=== PATIENT | female | born 1980 | race Two or more races ===

== ENCOUNTER 2017-06-30 02:53 | Inpatient (IN) | payer OTHER ==
[~2017-06-30] VITALS: Ht 162.6 cm; Wt 52.2 kg
[2017-06-30] VITALS (13 sets, daily range): BP systolic 82–101; BP diastolic 40–55
--- NOTE | 2017-06-30 02:55 | NUR ---
to bed 1 bib paramedics c/o syncope. pt aaox4 no acute distress noted, resp even and unlabored. place pt on cardiac monitoring, continuous pox. pupils perrla, pt able to move all extremities well with bilateral equal shuttlecock assembler. sl 18g to lac bar captain. pending er md flores. will continue to monitor pt closely.
--- NOTE | 2017-06-30 03:01 | NUR ---
er md at bedside to eval pt with orders received. will carry out orders.
[2017-06-30] MEDS ORDERED: ONDANSETRON HCL/PF 4 MG/2 ML VIAL ONE ×2 (03:28→06:10)
[2017-06-30] MEDS ORDERED: ONDANSETRON HCL/PF 4 MG/2 ML VIAL IVP ONE (03:30)
[2017-06-30] MEDS ORDERED: IV NS 0.9% 1,000 ML BAG IV ONE ×2 (03:30→05:30)
--- NOTE | 2017-06-30 03:35 | NUR ---
pt medicated by rn per er md order.
--- NOTE | 2017-06-30 03:38 | NUR ---
blood drawn by conditioner tender.
[2017-06-30 03:59] LABS: BASOPHILS % (AUTO) 0.3 % (0.0-2.0); EOSINOPHILS % (AUTO) 0.3 % (0.0-6.0); HEMATOCRIT 26 % (33-45); LYMPHOCYTES % (AUTO) 9.1 % (20.0-44.0); MEAN CORPUSCULAR HEMOGLOBIN 30 PG (26.0-33.0); MEAN CORPUSCULAR HGB CONC 34 g/dl (31.0-36.0); MEAN CORPUSCULAR VOLUME 88 fL (82-100); MONOCYTES # (AUTO) 0.3 /CMM (0.1-1.30); MONOCYTES % (AUTO) 2.5 % (2.0-12.0); NEUTROPHILS % (AUTO) 87.8 % (43.0-81.0); PLATELET COUNT (AUTO) 258 /CMM (150-450); RDW COEFFICIENT OF VARIATION 13.6 (11.5-15.0); RED BLOOD CELL COUNT(AUTO) 2.99 MIL/uL (4.0-5.2); WHITE BLOOD COUNT (AUTO) 11.3 K/uL (4.3-11.0)
[2017-06-30 04:11] LABS: CALCIUM, SERUM 8.2 mg/dL (8.5-10.1); CREATININE 0.7 mg/dL (0.6-1.3); POTASSIUM 4.6 mmol/L (3.5-5.1)
--- NOTE | 2017-06-30 04:35 | NUR ---
PT TO RESTROOM PRIOR TO GOING TO OB ROOM FOR PELVIC EXAM. AWAITING MD FOR PELVIC EXAM. ALONGSIDE PT
--- NOTE | 2017-06-30 04:40 | NUR ---
PERFORMED ORTHOSTATIC VITAL EXAM. PT STATED TO FEELING "LIGHTHEADED, NAUSEOUS, AND SHORT OF BREATH." PT WAS LAYED BACK DOWN AND SIDE RAILS RAISED UP. CALL LIGHT PLACED WITHIN REACH. BEDISDE WITH PT. NOTIFIED. PT STATES TO FEELING BETTER WHILE LAYING DOWN. WILL CONTINUE TO MONITOR
--- NOTE | 2017-06-30 04:50 | NUR ---
MD BEDSIDE WITH ERIC MUNIZ FOR PELVIC EXAM.
--- NOTE | 2017-06-30 04:59 | NUR ---
MD DONE WITH PELVIC EXAM. OUT OF PT'S ROOM
--- NOTE | 2017-06-30 05:01 | NUR ---
CALLED DR. ALHAJI PEREZ ([phone]) AND LEFT MESSAGE FOR ON-CALL PHYSICIAN TO CALL DR. ESPINOZA.
--- NOTE | 2017-06-30 05:14 | NUR ---
HONORIO HALE SPOKE TO DR. PEREZ.
--- NOTE | 2017-06-30 05:20 | NUR ---
DR. GUO CALLED; TRANSFERRED TO DR. ESPINOZA
--- NOTE | 2017-06-30 05:21 | NUR ---
NURSING OFFICE CHAIR ASSEMBLER CALLED FOR TELE BED.
--- NOTE | 2017-06-30 05:24 | NUR ---
PANEL PAGED PER ER MD ORDER.
[2017-06-30] MEDS ORDERED: OXYTOCIN 10 UNIT/ML ML ONE (05:26)
[2017-06-30] MEDS ORDERED: METHYLERGONOVINE MALEATE 0.2 MG/ML AMPUL ONE (05:27)
[2017-06-30] MEDS ORDERED: METHYLERGONOVINE MALEATE 0.2 MG/ML AMPUL IM ONE ×2 (05:30→17:30)
[2017-06-30] MEDS ORDERED: OXYTOCIN 10 UNIT/ML ML IV ONE (05:30)
--- NOTE | 2017-06-30 05:31 | NUR ---
TELE 326-2
--- NOTE | 2017-06-30 05:45 | NUR ---
PER MD, PTOCIN 20 UNITS WAS MIXED WITH CURRENT INFUSING 1L NS BAG.
[2017-06-30] MEDS ORDERED: ONDANSETRON HCL/PF 4 MG/2 ML VIAL IV PRN (06:30)
--- NOTE | 2017-06-30 07:30 | NUR ---
MS HARDWOOD SAWYER NOTE PATIENT IS ALERT AND ORIENTED x4. NO PAIN AT THIS TIME. NO SOB OR DISTRESS NOTED. CALL LIGHT WITHIN REACH. SAFETY MEASURES IMPLEMENTED. ABLE TO COMMUNICATE NEEDS. CAME INTO ER DUE TO HEAVY BLEEDING, PATIENT STATED SHE WAS 14 WEEKS WHEN THEY DID ULTRASOUND IN ER, AND WAS TOLD SHE HAD MISCARRIED. PATIENT BLED x2 IN ER. HAS NOT YET SHOWED ANY BLEEDING AT THIS TIME. NO FAMILY HISTORY. RECEIVED FLU SHOT IND APRIL. CURRENTLY BED REST PATIENT STATED SHE FELL TWICE AT HOME AND HIT HER HEAD, REFUSES HEAD CT AT THIS TIME. WILL CONTINUE TO MONITOR THROUGHOUT SHIFT
[2017-06-30] MEDS: IV NS 0.9% 1,000 ML IV PRN ×3 (08:22→21:03)
[2017-06-30 08:28] LABS: FERRITIN 24 ng/mL (8-388)
[2017-06-30 09:31] LABS: IRON, SERUM 26 ug/dl (50-175); TOTAL IRON BINDING CAPACITY 222 ug/dl (250-450)
--- NOTE | 2017-06-30 11:30 | NUR ---
MS RN NOTE CALLED DR. KIRBY OFFICE FOR PATIENT CONSULT. AWAITING CALL BACK. CHARGE NURSE AWARE
--- NOTE | 2017-06-30 12:15 | NUR ---
MS RN NOTE CALLED DR. GUO OFFICE AGAIN. NOTIFIED PROBATION MANAGER ABOUT PATIENT'S CONCERNS AT THIS TIME. PROBATION MANAGER NOTIFIED DR. GUO, AWAITING CALL BACK AT THIS TIME.
[2017-06-30 12:47] LABS: HEMOGLOBIN 5.4 g/dL (11.5-14.8)
--- NOTE | 2017-06-30 12:55 | NUR ---
MS RN NOTE SPOKE WITH DR. PEREZ (PATIENT'S PRIMARY CORPORATE SECURITIES RESEARCH ANALYST) UPDATED HER ON BEHALF OF PATIENT'S WISH.
--- NOTE | 2017-06-30 12:57 | NUR ---
MS RN NOTE RECEIVED CALL FROM DR. GUO WILL COME TO SEE PATIENT FOR CONSULT SOON POSSIBLE
--- NOTE | 2017-06-30 14:00 | NUR ---
MS REYES NOTE DR. GUO AT BEDSIDE AT THIS TIME. ORDERS NOTED AND CARRIED OUT. WILL CONTINUE TO MONITOR THROUGHOUT SHIFT Addendum: 06/30/17 at 1846 by FREDDY MCLEAN RN REGINALD HELD OFF AT THIS TIME RECEIVING TRANSFUSION
--- NOTE | 2017-06-30 15:00 | NUR ---
MS RN NOTE PATIENT DEVELOPED 101.6 TEMPERATURE, ASYMPTOMATIC AT THIS TIME, A/O x4. DURING TRANSFUSION. MADE DR. KUMAR AWARE OF TEMPERATURE. RECEIVED ORDER FOR TYLENOL 650 MG, BENADRYL 50 MG, AND CONTINUE TRANSFUSION AT THIS TIME. WILL CONTINUE TO MONITOR VITAL SIGNS AND TEMPERATURE THROUGHOUT TRANSFUSION.
[2017-06-30] MEDS ORDERED: diphenhydrAMINE HCL 50 MG CAPSULE PO ONE (15:30)
[2017-06-30] MEDS: ACETAMINOPHEN 325 MG TABLET PO PRN ×2 (15:39→22:48)
[2017-06-30] MEDS ORDERED: ANCEF 1 GM/50 ML D5W IV ONE ×2 (17:30)
[2017-06-30 18:38] LABS: HEMOGLOBIN 6.7 g/dL (11.5-14.8)
--- NOTE | 2017-06-30 18:44 | NUR ---
MS RN CLOSING NOTE PATIENT IS RESTING COMFORTABLY AT THIS TIME. NO PAIN AT THIS TIME. NO SOB OR DISTRESS NOTED. S/P 1 UNIT OF BLOOD GIVEN. PATIENT HAS SMALL TEMPERATURE-101 DR. KUMAR AWARE. ALL DUE MEDICATIONS GIVEN ORDERED. ALL NURSING CARE NEEDS ATTENDED TO. CALL LIGHT WITHIN REACH AT ALL TIMES. SAFETY MEASURES IMPLEMENTED. PHYSICAL THERAPY HELD OFF DUE TO LOW H&H. IV INTACT AND PATENT NO REDNESS OR SWELLING NOTED. IV ANTIBIOTIC RUNNING AT THIS TIME TOLERATING WELL. WILL ENDORSE TO LABEL MAKER NURSE
--- NOTE | 2017-06-30 19:30 | NUR ---
RN NOTES RECEIVED PATIENT IN BED AWAKE, AO X 3, ABLE TO MAKE NEEDS KNOWN. NO ACUTE DISTRESS NOTED. DENIES ANY PAIN AT THIS TIME. IV SITE PATENT, INTACT; FLUSHED. PATIENT STILL ACTIVELY BLEEDING. SAFETY REMINDERS GIVEN. ON LOW BED WITH BILATERAL UPPER SIDE RAILS UP. CALL VALLE WITHIN EASY REACH. WILL CONTINUE TO MONITOR.
[2017-06-30] MEDS: OXYTOCIN 20 UNIT in IV NS 0.9% 1,000 ML IV SCH (20:00)
--- NOTE | 2017-06-30 20:30 | NUR ---
RN NOTES DR. GUO MADE AWARE THAT PATIENT IS REFUSING OXYTOCIN. PATIENT IS STILL ACTIVELY BLEEDING. PER DR. GUO, GIVE PACKED RBC ORDERD.
[2017-06-30] MEDS: SOD FERRIC GLUC 125 MG in IV NS 0.9% 100 ML IV SCH (21:00)
[2017-07-01] VITALS (8 sets, daily range): BP systolic 85–103; BP diastolic 44–64
--- NOTE | 2017-07-01 01:08 | NUR ---
RN NOTES PATIENT TOLERATED BLOOD TRANSFUSION OF 1 UNIT PRBC. WILL CONTINUE TO MONITOR.
[2017-07-01] MEDS: OXYTOCIN 20 UNIT in IV NS 0.9% 1,000 ML IV SCH ×2 (01:31→09:32)
[2017-07-01 02:11] LABS: BASOPHILS % (AUTO) 0.4 % (0.0-2.0); EOSINOPHILS # (AUTO) 0.1 /CMM (0.0-0.7); EOSINOPHILS % (AUTO) 1.3 % (0.0-6.0); HEMATOCRIT 21 % (33-45); HEMOGLOBIN 7.1 g/dL (11.5-14.8); LYMPHOCYTES # (AUTO) 2.7 /CMM (0.8-4.8); LYMPHOCYTES % (AUTO) 35.3 % (20.0-44.0); MEAN CORPUSCULAR HEMOGLOBIN 30 PG (26.0-33.0); MEAN CORPUSCULAR HGB CONC 34 g/dl (31.0-36.0); MEAN CORPUSCULAR VOLUME 87 fL (82-100); MONOCYTES # (AUTO) 0.6 /CMM (0.1-1.30); MONOCYTES % (AUTO) 8.1 % (2.0-12.0); NEUTROPHILS # (AUTO) 4.2 /CMM (1.8-8.9); NEUTROPHILS % (AUTO) 54.9 % (43.0-81.0); PLATELET COUNT (AUTO) 168 /CMM (150-450); RDW COEFFICIENT OF VARIATION 13.7 (11.5-15.0); RED BLOOD CELL COUNT(AUTO) 2.37 MIL/uL (4.0-5.2); WHITE BLOOD COUNT (AUTO) 7.7 K/uL (4.3-11.0)
[2017-07-01] MEDS: IV NS 0.9% 1,000 ML IV PRN (05:18)
--- NOTE | 2017-07-01 06:30 | NUR ---
RN NOTES PATIENT ASLEEP, EASILY AROUSABLE. RESPIRATIONS EVEN. NO SIGNS OF PAIN NOTED. NS IVF INFUSING AT THIS TIME. VAGINAL BLEEDING HAS VASTLY DECREASED; PINK SPOTS ON DIAPER ONLY. NEEDS ATTENDED. SAFETY PRECAUTIONS AND COMFORT MEASURES IN PLACE. WILL GIVE REPORT TO DAY SHIFT FOR CONTINUITY OF CARE.
--- NOTE | 2017-07-01 07:05 | NUR ---
MS RN NOTES RECEIVED PATIENT IN BED ALERT ORIENTED x4. NO SOB NOTED. NO ACUTE DISTRESS NOTED. BREATHING UNLABORED. IV ACCESS PATENT AND INTACT. NO REDNESS OR SWELLING NOTED. SAFETY MEASURES IN PLACE. CALL LIGHT PLACED WITHIN REACH. WILL CONTINUE TO MONITOR ACCORDINGLY.
--- NOTE | 2017-07-01 09:47 | NUR ---
MS RN NOTES SEEN AND EVALUATED BY DR KUMAR WITH NEW ORDERS MADE, NOTED AND CARRIED OUT.
[2017-07-01] MEDS ORDERED: diphenhydrAMINE HCL 50 MG CAPSULE PO ONE (10:00)
[2017-07-01] MEDS ORDERED: ACETAMINOPHEN 650 MG/20.3 ML UDC NG ONE (10:00)
--- NOTE | 2017-07-01 11:00 | NUR ---
MS RN NOTES STARTED BLOOD TRANSFUSION, AT BEDSIDE. NO SOB NOTED. NO ACUTE DISTRESS NOTED. VITAL SIGN TAKEN AND RECORDING. CALL LIGHT WITHIN REACH. WILL CONTINUE TO MONITOR ACCORDINGLY.
--- NOTE | 2017-07-01 11:15 | NUR ---
MS RN NOTES PATIENT REMAINS IN STABLE CONDITION. NO ASE NOTED. AFEBRILE. NO SOB NOTED. NO ACUTE DISTRESS NOTED. VITAL SIGNS TAKEN AND RECORDED. CALL LIGHT WITHIN REACH. WILL CONTINUE TO MONITOR ACCORDINGLY.
[2017-07-01] MEDS: SOD FERRIC GLUC 125 MG in IV NS 0.9% 100 ML IV SCH (14:00)
--- NOTE | 2017-07-01 14:02 | NUR ---
MS RN NOTES BLOOD TRANSFUSION DONE, PATIENT TOLERATED WELL. NO ASE NOTED. NO SOB NOTED. NO ACUTE DISTRESS NOTED. VITAL SIGN TAKEN BP 104/58, ID [id number], RR 19, 99% ROOM AIR, TEMP 99. WILL CONTINUE TO MONITOR ACCORDINGLY.
--- NOTE | 2017-07-01 15:30 | NUR ---
MS DRAW PRESS OPERATOR NOTES PATIENT DISCHARGED WITH STABLE VITAL SIGNS. ALERT ORIENTED X 4.NO SOB NOTED. NO ACUTE DISTRESS NOTES. BREATHING UNLABORED. NO S/SX OF BLEEDING NOTED. DENIED DIZZINESS. DENIED ANY PAIN. IV ACCESS REMOVED, NO S/SX OF BLEEDING OR SWELLING NOTED. ALL BELONGINGS ACCOUNTED FOR. DISCHARGE INSTRUCTIONS GIVEN TO THE PATIENT, VERBALIZED UNDERSTANDING. PATIENT WHEELED TO THE LOBBY ACCOMPANIED BY RN AND DESIGNER AND PATTERNMAKER, ASSISTED TO PRIVATE CAR WITH .
== END 2017-07-01 15:30 | disposition home or self-care (01) | DRG 779 ==
LOC: EDBD 02:55 → ER 02:55 → TELE 05:33 → MED 09:15
DX: O03.9 Complete or unspecified spontaneous abortion without complication (principal); D62 Acute posthemorrhagic anemia
CPT/HCPCS: 36415; 80048-TC; 82728-TC; 83540-TC; 84702-TC; 85025-TC; 85027-TC; 86850-TC; 86921-TC; 87081-TC; A4606; J0690; J2210; J2405; J2590; J2916; J7030; J7050; J7060; P9016-BL; Q0163; Z7610